=== PATIENT | female | born 1995 | race Caucasian/White ===

== ENCOUNTER 2017-06-16 22:24 | Emergency (ER) | payer MEDICAID, OTHER ==
[~2017-06-16] VITALS: Ht 160 cm; Wt 54.5 kg
[~2017-06-16 22:24] MED LIST: NOCURR
[2017-06-17 02:02] VITALS: BP 130/90
== END 2017-06-17 02:02 | disposition home or self-care (01) ==
LOC: EMS 22:27
DX: S06.0X0A Concussion without loss of consciousness, initial encounter (principal); W22.8XXA Striking against or struck by other objects, initial encounter; Y93.89 Activity, other specified; Y92.810 Car as the place of occurrence of the external cause; Y99.8 Other external cause status
CPT/HCPCS: 99173; 99283